=== PATIENT | female | born 1980 | race Caucasian/White ===

== ENCOUNTER 2016-09-24 10:48 | Emergency (ER) | payer MEDICARE, MEDICAID ==
[~2016-09-24 10:48] MED LIST: /BACL20TA OR; /CELE20CA PO; /DIVA50TA PO; /LOR25TA PO; /PREG100CA PO; CIPR500T3 PO; CYCL10TA3 PO; DEPAKOTE PO; DIVA250T PO; DOCU10ELUD PO; FENT100D25 TD; FLEX10TA2 PO; FLEXERIL PO; GABA300C2 PO; GABA600T3 OR; HYDR7.5T38 PO; IBUP800T OR; MACR50CA OR; MELO15TA3 PO; NUCY75TA PO; OLAN10TA2 PO; OXYC30TA4 PO; OXYCONTIN PO; PERC5TAB8 OR; PERC5TAB8 PO; SOMA350T OR; SOMA350T PO; TRAZ150T PO; TRAZ50TA2 PO; ULTR200T2 PO; VALI10TA OR; VICO5TAB PO; ZOLO100T OR; ZOLP-189 PO; ZYPR5TAB2 PO; methylprednisolone PO
--- NOTE | 2016-09-24 12:00 | EDDOCDS ---
Physician Documentation [facility] Name: Ashley Mcmullen Age: 36 yrs Sex: Female : 1980 Arrival Date: 09/24/2016 Time: 10:48 Bed Triage 1 Private MD: Thomas Conklin H. Disposition: 09/24/16 11:53 Discharged to Home/Self Care. Impression: Low back pain. - Condition is Stable. - Discharge Instructions: Chronic Back Pain. - Prescriptions for Medrol (Chencho) 4 mg Oral Tablets, Dose Pack - take 1 Pack by ORAL route as directed - follow package instructions; 1 packet. Robaxin- 750 750 mg Oral Tablet - take 1 tablet by ORAL route every 6 hours As needed; 40 tablet. - Medication Reconciliation, Local Pharmacy Hours form. - Follow up: Thomas Conklin; When: Call to arrange an appointment; Reason: Further diagnostic work-up, Recheck today's complaints, Continuance of care. - Problem is chronic. - Symptoms are unchanged. Historical: - Allergies: no known allergies; - Home Meds: 1. BuSpar Oral 10 mg twice a day as needed 2. doxipen 25 mg for sleep as needed as needed 3. ibuprofen 800 mg Oral tab 1 tab as needed (Last dose: 09/24/2016 05:00) 4. Soma 350 mg Oral tab 1 tab 3 times per day (Last dose: 09/24/2016 05:00) - PMHx: Anxiety Disorder; Chronic Back pain; Depression; - PSHx: Lumbar Fusion; Uterine Ablation; ; back surgeries; - Social history: Smoking status: Patient uses tobacco products, current every day smoker. No barriers to communication noted, The patient speaks fluent Emirati, Speaks appropriately for age. - Family history: Not pertinent. - : The pt / caregiver states he / she is not on anticoagulants. Home medication list is obtained from the patient. - Exposure Risk Screening:: None identified. 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 9 in. (175.26 cm) (R); 10:49 Body Mass Index 22.15 (68.04 kg, 175.26 cm) dd6 MDM: 11:57 Financial registration complete. lg Signatures: Karley Puri, RN RN Mireya Oleary, Diaz Lowry lg RN RN mlb1 Jose Guadalupe Flores PA PA btw MTDD
--- NOTE | 2016-09-24 12:00 | EDDOCDS ---
Nurse's Notes [facility] Name: Ashley Mcmullen Age: 36 yrs Sex: Female : 1980 Arrival Date: 09/24/2016 Time: 10:48 Bed Triage 1 Private MD: Thomas Conklin H. Diagnosis: Low back pain Presentation: 09/24 10:52 Presenting complaint: Patient states: lower back pain that radiates down left leg. hx srm of spinal fusion. pain started 3-4 days ago. Acute neurological deficits are not present. Mechanism of Injury: No Mechanism of Injury. Adult Sepsis Screening: The patient does not have new or worsening altered mentation. Patient's respiratory rate is less than 22. Systolic blood pressure is greater than 100. Patient has a qSOFA score of 0- Negative Sepsis Screen. Suicide/Homicide risk assessment- the patient denies having any suicidal and/or homicidal ideations and does not present with any other emotional, behavioral or mental health complaints. 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 Transition of care: patient was not received from another setting of care. 10:52 Acuity: FAUZIA Level 4 srm 10:52 Method Of Arrival: Walkin/Carried/Asstd srm Triage Assessment: 10:54 General: Appears in no apparent distress, Behavior is appropriate for age, cooperative. srm Pain: Pain currently is 9 out of 10 on a pain scale. HIV screening NA for this visit Offered previously. Musculoskeletal: Reports low back pain. 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 BuSpar Oral 10 mg twice a day as needed 2. doxipen 25 mg for sleep as needed as needed 3. ibuprofen 800 mg Oral tab 1 tab as needed (Last dose: 09/24/2016 05:00) 4. Soma 350 mg Oral tab 1 tab 3 times per day (Last dose: 09/24/2016 05:00) - PMHx: Anxiety Disorder; Chronic Back pain; Depression; - PSHx: Lumbar Fusion; Uterine Ablation; ; back surgeries; - Social history: Smoking status: Patient uses tobacco products, current every day smoker. No barriers to communication noted, The patient speaks fluent Swedish, Speaks appropriately for age. - Family history: Not pertinent. - : The pt / caregiver states he / she is not on anticoagulants. Home medication list is obtained from the patient. - Exposure Risk Screening:: None identified. Screenin:58 Screening information is obtained from the patient. Fall risk: No risks identified. mlb1 Assistance ADL's: requires no assistance with activities of daily living. Abuse/DV Screen: The patient / caregiver reports he/she is: not in a situation that causes fear, pain or injury. Nutritional screening: No deficits noted. Advance Directives: Currently, there is no health care proxy. home support is adequate. Assessment: 11:57 General: Appears uncomfortable, Behavior is appropriate for age, cooperative. Pain: mlb1 Location: low back area Pain currently is 8 out of 10 on a pain scale. Neurological: No deficits noted. Musculoskeletal: Range of motion intact in all extremities. Vital Signs: 10:49 BP 112 / 74; Pulse 103; Resp 18 S; Temp 99.1(O); Pulse Ox 99% on R/A; Weight 68.04 kg dd6 (R); Height 5 ft. 9 in. (175.26 cm) (R); 10:49 Body Mass Index 22.15 (68.04 kg, 175.26 cm) dd6 Vitals: 10:49 Log In Time: September 24, 2016 at 10:47. dd6 ED Course: 10:48 Patient visited by Cj Hill PCA. dd6 10:49 Thomas Conklin is Private Physician. dd6 10:49 Patient moved to Waiting dd6 10:50 Patient moved to Pre RCE dd6 10:53 Triage Initiated srm 10:56 Patient moved to Triage 1 srm 11:25 Jose Guadalupe lFores PA is PHCP. btw 11:25 Josie Salas MD is Attending Physician. btw 11:25 Patient visited by Jose Guadalupe Flores PA. btw 11:53 Thomas Conklin is Referral Physician. btw 11:58 No IV's were initiated during this patient's visit. No procedures done that require mlb1 assistance. 11:59 The patient / caregiver is instructed regarding the plan of care and ED course. mlb1 Order Results: There are currently no results for this order. Outcome: 11:53 Discharge ordered by Provider. btw 11:58 Discharge Assessment: Patient awake, alert and oriented x 3. No cognitive and/or mlb1 functional deficits noted. Patient verbalized understanding of disposition instructions. patient administered narcotics - no. The following High Risk Discharge criteria are identified: None. Discharged to home ambulatory. Condition: good. Discharge instructions given to patient, Instructed on discharge instructions, follow up and referral plans. medication usage, Demonstrated understanding of instructions, medications, Pt was receptive of discharge instructions/ teaching. Prescriptions given X 2. No special radiology studies were completed. Property removed. 11:59 Patient left the ED. mlb1 Signatures: Karley Puri, RN RN Diaz Bartlett RN RN mlb1 Cj Hill, PADDED PRODUCTS INSPECTOR TRIMMER PADDED PRODUCTS INSPECTOR TRIMMER dd6 Jose Guadalupe Flores, ESTRELLA PA btw MTDD
--- NOTE | 2016-09-26 13:01 | EDDOCDS ---
Physician Documentation [facility] Name: Ashley Mcmullen Age: 36 yrs Sex: Female : 1980 Arrival Date: 09/24/2016 Time: 10:48 Bed Triage 1 Private MD: Thomas Conklin H. Disposition: 09/24/16 11:53 Discharged to Home/Self Care. Impression: Low back pain. - Condition is Stable. - Discharge Instructions: Chronic Back Pain. - Prescriptions for Medrol (Chencho) 4 mg Oral Tablets, Dose Pack - take 1 Pack by ORAL route as directed - follow package instructions; 1 packet. Robaxin- 750 750 mg Oral Tablet - take 1 tablet by ORAL route every 6 hours As needed; 40 tablet. - Medication Reconciliation, Local Pharmacy Hours form. - Follow up: Thomas Conklin; When: Call to arrange an appointment; Reason: Further diagnostic work-up, Recheck today's complaints, Continuance of care. - Problem is chronic. - Symptoms are unchanged. Historical: - Allergies: no known allergies; - Home Meds: 1. BuSpar Oral 10 mg twice a day as needed 2. doxipen 25 mg for sleep as needed as needed 3. ibuprofen 800 mg Oral tab 1 tab as needed (Last dose: 09/24/2016 05:00) 4. Soma 350 mg Oral tab 1 tab 3 times per day (Last dose: 09/24/2016 05:00) - PMHx: Anxiety Disorder; Chronic Back pain; Depression; - PSHx: Lumbar Fusion; Uterine Ablation; ; back surgeries; - Social history: Smoking status: Patient uses tobacco products, current every day smoker. No barriers to communication noted, The patient speaks fluent Barbadian, Speaks appropriately for age. - Family history: Not pertinent. - : The pt / caregiver states he / she is not on anticoagulants. Home medication list is obtained from the patient. - Exposure Risk Screening:: None identified. 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 9 in. (175.26 cm) (R); 10:49 Body Mass Index 22.15 (68.04 kg, 175.26 cm) dd6 MDM: 11:57 Financial registration complete. lg 14:36 T-Sheet-- Draft Copy was scanned into [employer] and attached to record. gb 14:36 Other: DRUG UTILIZATION REPORT was scanned into [employer] and attached to record. gb 09/26 11:07 [facility] Payment Agreement was scanned into [employer] and attached to record. lg Signatures: Karley Puri, RN RN [facility] Magda Vasques, Reg Reg gb Mireya Castaneda, Reg Reg lg Diaz Shipley RN RN mlb1 Jose Guadalupe Flores PA PA btw The chart was reviewed and I authenticate all verbal orders and agree with the evaluation and treatment provided.Attachments: 09/24 14:36 T-Sheet-- Draft Copy gb 09/26 11:07 [facility] Payment Agreement lg Chart Complete MTDD
--- NOTE | 2016-09-26 13:01 | EDDOCDS ---
Physician Documentation [facility] Name: Ashley Mcmullen Age: 36 yrs Sex: Female : 1980 Arrival Date: 09/24/2016 Time: 10:48 Bed Triage 1 Private MD: Thomas Conklin H. Disposition: 09/24/16 11:53 Discharged to Home/Self Care. Impression: Low back pain. - Condition is Stable. - Discharge Instructions: Chronic Back Pain. - Prescriptions for Medrol (Chencho) 4 mg Oral Tablets, Dose Pack - take 1 Pack by ORAL route as directed - follow package instructions; 1 packet. Robaxin- 750 750 mg Oral Tablet - take 1 tablet by ORAL route every 6 hours As needed; 40 tablet. - Medication Reconciliation, Local Pharmacy Hours form. - Follow up: Thomas Conklin; When: Call to arrange an appointment; Reason: Further diagnostic work-up, Recheck today's complaints, Continuance of care. - Problem is chronic. - Symptoms are unchanged. Historical: - Allergies: no known allergies; - Home Meds: 1. BuSpar Oral 10 mg twice a day as needed 2. doxipen 25 mg for sleep as needed as needed 3. ibuprofen 800 mg Oral tab 1 tab as needed (Last dose: 09/24/2016 05:00) 4. Soma 350 mg Oral tab 1 tab 3 times per day (Last dose: 09/24/2016 05:00) - PMHx: Anxiety Disorder; Chronic Back pain; Depression; - PSHx: Lumbar Fusion; Uterine Ablation; ; back surgeries; - Social history: Smoking status: Patient uses tobacco products, current every day smoker. No barriers to communication noted, The patient speaks fluent Cymro, Speaks appropriately for age. - Family history: Not pertinent. - : The pt / caregiver states he / she is not on anticoagulants. Home medication list is obtained from the patient. - Exposure Risk Screening:: None identified. 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 9 in. (175.26 cm) (R); 10:49 Body Mass Index 22.15 (68.04 kg, 175.26 cm) dd6 MDM: 11:57 Financial registration complete. lg 14:36 T-Sheet-- Draft Copy was scanned into [employer] and attached to record. gb 14:36 Other: DRUG UTILIZATION REPORT was scanned into [employer] and attached to record. gb 09/26 11:07 [facility] Payment Agreement was scanned into [employer] and attached to record. lg Signatures: Karley Puri, RN RN [facility] Magda Vasques, Reg Reg gb Mireya Castaneda, Reg Reg lg Diaz Shipley RN RN mlb1 Jose Guadalupe Flores PA PA btw The chart was reviewed and I authenticate all verbal orders and agree with the evaluation and treatment provided.Attachments: 09/24 14:36 T-Sheet-- Draft Copy gb 09/26 11:07 [facility] Payment Agreement lg Chart Complete MTDD
--- NOTE | 2016-09-26 13:01 | EDDOCDS ---
Nurse's Notes [facility] Name: Ashley Mcmullen Age: 36 yrs Sex: Female : 1980 Arrival Date: 09/24/2016 Time: 10:48 Bed Triage 1 Private MD: Thomas Conklin H. Diagnosis: Low back pain Presentation: 09/24 10:52 Presenting complaint: Patient states: lower back pain that radiates down left leg. hx srm of spinal fusion. pain started 3-4 days ago. Acute neurological deficits are not present. Mechanism of Injury: No Mechanism of Injury. Adult Sepsis Screening: The patient does not have new or worsening altered mentation. Patient's respiratory rate is less than 22. Systolic blood pressure is greater than 100. Patient has a qSOFA score of 0- Negative Sepsis Screen. Suicide/Homicide risk assessment- the patient denies having any suicidal and/or homicidal ideations and does not present with any other emotional, behavioral or mental health complaints. Status: Patient is not a administrative services coordinator or dependent. Transition of care: patient was not received from another setting of care. 10:52 Acuity: FAUZIA Level 4 srm 10:52 Method Of Arrival: Walkin/Carried/Asstd srm Triage Assessment: 10:54 General: Appears in no apparent distress, Behavior is appropriate for age, cooperative. srm Pain: Pain currently is 9 out of 10 on a pain scale. HIV screening NA for this visit Offered previously. Musculoskeletal: Reports low back pain. 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 BuSpar Oral 10 mg twice a day as needed 2. doxipen 25 mg for sleep as needed as needed 3. ibuprofen 800 mg Oral tab 1 tab as needed (Last dose: 09/24/2016 05:00) 4. Soma 350 mg Oral tab 1 tab 3 times per day (Last dose: 09/24/2016 05:00) - PMHx: Anxiety Disorder; Chronic Back pain; Depression; - PSHx: Lumbar Fusion; Uterine Ablation; ; back surgeries; - Social history: Smoking status: Patient uses tobacco products, current every day smoker. No barriers to communication noted, The patient speaks fluent Telugu, Speaks appropriately for age. - Family history: Not pertinent. - : The pt / caregiver states he / she is not on anticoagulants. Home medication list is obtained from the patient. - Exposure Risk Screening:: None identified. Screenin:58 Screening information is obtained from the patient. Fall risk: No risks identified. mlb1 Assistance ADL's: requires no assistance with activities of daily living. Abuse/DV Screen: The patient / caregiver reports he/she is: not in a situation that causes fear, pain or injury. Nutritional screening: No deficits noted. Advance Directives: Currently, there is no health care proxy. home support is adequate. Assessment: 11:57 General: Appears uncomfortable, Behavior is appropriate for age, cooperative. Pain: mlb1 Location: low back area Pain currently is 8 out of 10 on a pain scale. Neurological: No deficits noted. Musculoskeletal: Range of motion intact in all extremities. Vital Signs: 10:49 BP 112 / 74; Pulse 103; Resp 18 S; Temp 99.1(O); Pulse Ox 99% on R/A; Weight 68.04 kg dd6 (R); Height 5 ft. 9 in. (175.26 cm) (R); 10:49 Body Mass Index 22.15 (68.04 kg, 175.26 cm) dd6 Vitals: 10:49 Log In Time: September 24, 2016 at 10:47. dd6 ED Course: 10:48 Patient visited by Cj Hill PCA. dd6 10:49 Thomas Conklin is Private Physician. dd6 10:49 Patient moved to Waiting dd6 10:50 Patient moved to Pre RCE dd6 10:53 Triage Initiated srm 10:56 Patient moved to Triage 1 srm 11:25 Jose Guadalupe Flores PA is PHCP. btw 11:25 Josie Salas MD is Attending Physician. btw 11:25 Patient visited by Jose Guadalupe Flores PA. btw 11:53 Thomas Conklin is Referral Physician. btw 11:58 No IV's were initiated during this patient's visit. No procedures done that require mlb1 assistance. 11:59 The patient / caregiver is instructed regarding the plan of care and ED course. mlb1 14:36 T-Sheet-- Draft Copy was scanned into [employer] and attached to record. gb 14:36 Other: DRUG UTILIZATION REPORT was scanned into [employer] and attached to record. gb 09/26 11:07 [facility] Payment Agreement was scanned into [employer] and attached to record. lg Order Results: There are currently no results for this order. Outcome: 09/24 11:53 Discharge ordered by Provider. btw 11:58 Discharge Assessment: Patient awake, alert and oriented x 3. No cognitive and/or mlb1 functional deficits noted. Patient verbalized understanding of disposition instructions. patient administered narcotics - no. The following High Risk Discharge criteria are identified: None. Discharged to home ambulatory. Condition: good. Discharge instructions given to patient, Instructed on discharge instructions, follow up and referral plans. medication usage, Demonstrated understanding of instructions, medications, Pt was receptive of discharge instructions/ teaching. Prescriptions given X 2. No special radiology studies were completed. Property removed. 11:59 Patient left the ED. mlb1 Signatures: Karley Puri, RN RN [facility] Magda Vasques, Reg Reg gb Mireya Castaneda, Reg Reg lg Diaz Shipley RN RN mlb1 Cj Hill, GENDER STUDIES PROFESSOR GENDER STUDIES PROFESSOR dd6 Jose Guadalupe Flores PA PA btw Chart Complete MTDD
== END 2016-09-24 11:59 | disposition home or self-care (01) ==
LOC: M ED 10:48
DX: M54.5 Low back pain (principal); G89.29 Other chronic pain; F41.9 Anxiety disorder, unspecified; F32.9 Major depressive disorder, single episode, unspecified; Z79.899 Other long term (current) drug therapy

== ENCOUNTER 2017-03-19 11:33 | Emergency (ER) | payer MEDICARE, MEDICAID ==
[~2017-03-19] VITALS: Ht 172.7 cm; Wt 68.9 kg
[2017-03-19] MEDS ORDERED: IBUP-1022 PO ×2 (11:47→14:44)
[2017-03-19] MEDS ORDERED: NORCO, ANEXSIA 5/325MG TABLET (HYDROcodone/ACETAMINOPHEN) PO ONE (13:45)
--- NOTE | 2017-03-19 14:24 | REP ---
Clinical: Trauma. Injury. Technique: AP and frog lateral views of the left femur. Findings: No acute fracture dislocation. Joint spaces are intact and normal for age. Surrounding soft tissues are unremarkable. Impression: Normal left femur radiographs. Signed by Warner Diop MD 03/19/2017 02:15 P
--- NOTE | 2017-03-19 14:25 | REP ---
Clinical: Trauma. Injury. Technique: AP and lateral views of the left tibia / fibula. Comparison: 03/30/2016. Findings: No acute fracture dislocation. Skeletal structures, joint spaces, and surrounding soft tissues are relatively normal and stable. Old fracture fragments at the lateral malleolus are similar to prior examination. No subcutaneous emphysema or radiodense foreign body. Impression: No acute fracture or dislocation. Signed by Warner Diop MD 03/19/2017 02:16 P
[2017-03-19] MEDS ORDERED: MORPHINE 2 MG/ML 1ML SYRINGE IM ONE (14:30)
[2017-03-19] MEDS ORDERED: NORCOTAB PO (14:44)
[2017-03-19 15:00] VITALS: BP 129/69
[2017-07-20] MEDS ORDERED: PERC5TAB12 PO (16:24)
[2017-07-20] MEDS ORDERED: IBUP80TA PO (16:52)
[2017-07-20] MEDS ORDERED: CYCL10TA PO (16:53)
== END 2017-03-19 15:05 | disposition home or self-care (01) ==
LOC: M ED 11:33
DX: S83.92XA Sprain of unspecified site of left knee, initial encounter (principal); W18.42XA Slipping, tripping and stumbling without falling due to stepping into hole or opening, initial encounter; Y92.009 Unspecified place in unspecified non-institutional (private) residence as the place of occurrence of the external cause; Y93.01 Activity, walking, marching and hiking; Y99.8 Other external cause status; F41.9 Anxiety disorder, unspecified; F17.200 Nicotine dependence, unspecified, uncomplicated

== ENCOUNTER 2017-05-08 11:25 | Emergency (ER) | payer MEDICARE, MEDICAID ==
[~2017-05-08] VITALS: Ht 172.7 cm; Wt 70.4 kg
[~2017-05-08 11:25] MED LIST changes: +IBUP-1022 PO; +NORCOTAB PO
[2017-05-08] MEDS ORDERED: NORCO, ANEXSIA 5/325MG TABLET (HYDROcodone/ACETAMINOPHEN) PO ONE (12:30)
[2017-05-08 12:52] LABS: BASO % 0.5 % (0.0-1.0); EOS # 0.5 K/mm3 (0.0-0.50); EOS % 6.6 % (0.0-3.0); LARGE UNSTAINED CELL # 0.1 K/mm3 (0.0-0.4); LARGE UNSTAINED CELL % 1.3 % (0.0-4.0); LYMPH # 2.4 K/mm3 (1.5-4.5); LYMPH % 31.6 % (24.0-44.0); MEAN CORPUSCULAR HEMOGLOBIN 33.1 pg (27.0-33.0); MEAN CORPUSCULAR HGB CONC 34.6 g/dl (32.0-36.5); MEAN CORPUSCULAR VOLUME 95.6 fl (80.0-96.0); MONO # 0.3 K/mm3 (0.0-0.8); MONO % 3.6 % (0.0-5.0); NEUTROPHILS # 4.2 K/mm3 (1.8-7.7); NEUTROPHILS % 56.3 % (36.0-66.0); PLATELET COUNT, AUTOMATED 299 k/mm3 (150-450); RED CELL DISTRIBUTION WIDTH 12.2 % (11.5-14.5); WHITE BLOOD COUNT 7.4 K/mm3 (4.0-10.0)
[2017-05-08 12:55] LABS: ANION GAP 9 MEQ/L (8-16); BLOOD UREA NITROGEN 9 MG/DL (7-18); CALCIUM LEVEL 9.1 MG/DL (8.5-10.1); CARBON DIOXIDE LEVEL 21 MEQ/L (21-32); CHLORIDE LEVEL 110 MEQ/L (98-107); CREATININE FOR GFR 0.54 MG/DL (0.55-1.02); GLOMERULAR FILTRATION RATE > 60.0 (>60); GLUCOSE, FASTING 109 MG/DL (70-105); POTASSIUM SERUM 4.1 MEQ/L (3.5-5.1); SODIUM LEVEL 140 MEQ/L (136-145)
--- NOTE | 2017-05-08 13:19 | REP ---
CHEST: Two views. There is no evidence of acute infiltrate. No pleural effusion is seen. The heart is normal in size. The mediastinal silhouette is unremarkable. The visualized osseous structures are intact. IMPRESSION: No acute pulmonary disease. Signed by Brian Martines MD 05/08/2017 04:44 P
[2017-05-08 13:28] LABS: ERYTHROCYTE SEDIMENTATION RATE 7 mm/hr (0-20)
[2017-05-08] MEDS ORDERED: NORCOTAB PO (13:56)
[2017-05-08 14:02] VITALS: BP 136/79
--- NOTE | 2017-05-09 08:08 | ECGEPIP ---
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
[2017-07-20] MEDS ORDERED: PERC5TAB12 PO (16:24)
[2017-07-20] MEDS ORDERED: IBUP80TA PO (16:52)
[2017-07-20] MEDS ORDERED: CYCL10TA PO (16:53)
== END 2017-05-08 14:04 | disposition home or self-care (01) ==
LOC: M ED 11:25
DX: N64.4 Mastodynia (principal); F17.200 Nicotine dependence, unspecified, uncomplicated; Z98.1 Arthrodesis status

== ENCOUNTER 2017-09-10 09:05 | Emergency (ER) | payer MEDICARE, MEDICAID ==
[~2017-09-10] VITALS: Ht 175.3 cm; Wt 70.5 kg
[~2017-09-10 09:05] MED LIST changes: +CYCL10TA PO; +IBUP80TA PO; +PERC5TAB12 PO
[2017-09-10] MEDS ORDERED: TYLE325T5 PO (09:18)
[2017-09-10] MEDS ORDERED: MORPHINE 4 MG/ML 1ML SYRINGE IV ONE (09:45)
[2017-09-10] MEDS ORDERED: ONDANSETRON 4MG/2ML VIAL (J2405) IV ONE (09:45)
[2017-09-10] MEDS ORDERED: NS 1,000 ML IV ONE (09:45)
[2017-09-10 10:13] LABS: BASO % 0.5 % (0.0-1.0); EOS # 0.5 10^3/uL (0.0-0.50); EOS % 6.8 % (0.0-3.0); IMMATURE GRANULOCYTE % 0.1 % (0-0); LYMPH # 2.3 10^3/uL (1.5-4.5); MEAN CORPUSCULAR HEMOGLOBIN 31.6 pg (27.0-33.0); MEAN CORPUSCULAR HGB CONC 34.2 g/dl (32.0-36.5); MEAN CORPUSCULAR VOLUME 92.5 fl (80.0-96.0); MONO # 0.4 10^3/uL (0.0-0.8); MONO % 5.9 % (0.0-5.0); NEUTROPHILS # 4.2 10^3/uL (1.8-7.7); NEUTROPHILS % 55.7 % (36.0-66.0); PLATELET COUNT, AUTOMATED 291 10^3/uL (150-450); RED CELL DISTRIBUTION WIDTH 11.9 % (11.5-14.5); WHITE BLOOD COUNT 7.5 10^3/uL (4.0-10.0)
[2017-09-10 10:46] LABS: ALBUMIN 4.7 GM/DL (3.2-5.2); ALBUMIN/GLOBULIN RATIO 1.34 (1.00-1.93); ALKALINE PHOSPHATASE 57 U/L (45-117); ALT/SGPT 27 U/L (12-78); AMYLASE 31 U/L (25-115); ANION GAP 9 MEQ/L (8-16); AST/SGOT 21 U/L (7-37); BILIRUBIN,DIRECT 0.3 MG/DL (0.0-0.2); BILIRUBIN,TOTAL 1.3 MG/DL (0.2-1.0); BLOOD UREA NITROGEN 5 MG/DL (7-18); CARBON DIOXIDE LEVEL 26 MEQ/L (21-32); CHLORIDE LEVEL 103 MEQ/L (98-107); CREATININE FOR GFR 0.71 MG/DL (0.55-1.02); GLOMERULAR FILTRATION RATE > 60.0 (>60); GLUCOSE, FASTING 90 MG/DL (70-105); POTASSIUM SERUM 4.1 MEQ/L (3.5-5.1); SODIUM LEVEL 138 MEQ/L (136-145); TOTAL PROTEIN 8.2 GM/DL (6.4-8.2)
[2017-09-10] MEDS ORDERED: ISOVUE-370 76% 100ML VIAL (Q9967) As Ordered ONE (10:46)
[2017-09-10] MEDS ORDERED: AUGM875T28 PO (11:38)
[2017-09-10] MEDS ORDERED: ZOFR4TAB3 PO (11:38)
[2017-09-10] MEDS ORDERED: AUGMENTIN 875 MG TAB PO ONE (11:45)
[2017-09-10 11:47] VITALS: BP 127/88
--- NOTE | 2017-09-10 11:48 | REP ---
CT ABDOMEN AND PELVIS WITH IV CONTRAST: TECHNIQUE: Axial contrast enhanced images from the lung bases to the pubic symphysis using 100 mL Isovue 370 intravenous contrast material with multiplanar reformations. The visualized lung bases demonstrate no infiltrate. The liver, spleen, adrenals, pancreas and kidneys are unremarkable in appearance. There is no hydronephrosis bilaterally. There is no abdominal aortic aneurysm. There is no adenopathy. There is no free air or free fluid. I see no bowel wall thickening. There are small bowel loops in the upper abdomen which are moderately dilated which may represent an ileus. I do not see compelling evidence for bowel obstruction. No pelvic mass is seen. Urinary bladder is grossly unremarkable. No anterior abdominal wall defect is seen. The appendix is normal. There are metallic screws in the lower lumbar spine with rods posteriorly compatible with prior surgical fusion at L5-S1. IMPRESSION: Moderately dilated jejunum in the left upper quadrant may represent ileus with no compelling evidence for obstruction. No free air. No evidence of appendicitis. Signed by Brian Martines MD 09/10/2017 08:38 P
== END 2017-09-10 11:50 | disposition home or self-care (01) ==
LOC: M ED 09:05
DX: E86.0 Dehydration (principal); K56.7 Ileus, unspecified; J02.0 Streptococcal pharyngitis; F17.210 Nicotine dependence, cigarettes, uncomplicated
CPT/HCPCS: 74177; 80048; 80076; 81001; 81025; 82150; 83690; 85025; 87880; 96374; 96375; 99284; J2405; Q9967

== ENCOUNTER → 2017-10-10 | Outpatient (CLI) | payer MEDICARE, MEDICAID | LOC: M LRY 15:20 | DX: S39.92XA Unspecified injury of lower back, initial encounter (principal); M51.36 Other intervertebral disc degeneration, lumbar region; W10.8XXA Fall (on) (from) other stairs and steps, initial encounter; Y92.008 Other place in unspecified non-institutional (private) residence as the place of occurrence of the external cause; Z98.1 Arthrodesis status | CPT/HCPCS: 72110; G0463 ==

== ENCOUNTER → 2018-05-27 | Outpatient (CLI) | payer MEDICARE, MEDICAID ==
[2018-05-27 09:45] LABS: BASO % 0.2 % (0.0-1.0); EOS # 0.3 10^3/uL (0.0-0.50); HEMATOCRIT 46.4 % (36.0-47.0); HEMOGLOBIN 15.7 g/dl (12.0-15.5); IMMATURE GRANULOCYTE % 0.4 % (0-3.0); LYMPH # 2.3 10^3/uL (1.5-4.5); LYMPH % 18.2 % (24.0-44.0); MEAN CORPUSCULAR HEMOGLOBIN 32.6 pg (27.0-33.0); MEAN CORPUSCULAR HGB CONC 33.8 g/dl (32.0-36.5); MEAN CORPUSCULAR VOLUME 96.3 fl (80.0-96.0); MONO # 0.7 10^3/uL (0.0-0.8); MONO % 5.3 % (0.0-5.0); NEUTROPHILS # 9.1 10^3/uL (1.8-7.7); NEUTROPHILS % 73.9 % (36.0-66.0); PLATELET COUNT, AUTOMATED 350 10^3/uL (150-450); RED BLOOD COUNT 4.82 10^6/uL (4.00-5.40); RED CELL DISTRIBUTION WIDTH 12.4 % (11.5-14.5); WHITE BLOOD COUNT 12.4 10^3/uL (4.0-10.0)
[2018-05-27 10:16] LABS: ALBUMIN 4.1 GM/DL (3.2-5.2); ALBUMIN/GLOBULIN RATIO 1.11 (1.00-1.93); ALKALINE PHOSPHATASE 61 U/L (45-117); ALT/SGPT 24 U/L (12-78); ANION GAP 9 MEQ/L (8-16); AST/SGOT 14 U/L (7-37); BILIRUBIN,TOTAL 1.2 MG/DL (0.2-1.0); BLOOD UREA NITROGEN 8 MG/DL (7-18); CALCIUM LEVEL 9.7 MG/DL (8.5-10.1); CARBON DIOXIDE LEVEL 26 MEQ/L (21-32); CHLORIDE LEVEL 104 MEQ/L (98-107); CREATININE FOR GFR 0.83 MG/DL (0.55-1.30); GLOMERULAR FILTRATION RATE > 60.0 (>60); GLUCOSE, FASTING 78 MG/DL (70-100); LIPASE 304 U/L (73-393); POTASSIUM SERUM 4.7 MEQ/L (3.5-5.1); SODIUM LEVEL 139 MEQ/L (136-145); TOTAL PROTEIN 7.8 GM/DL (6.4-8.2)
== END ==
LOC: M WUC 08:36
DX: R19.7 Diarrhea, unspecified (principal); R10.84 Generalized abdominal pain
CPT/HCPCS: 83690

== ENCOUNTER → 2018-08-02 | Outpatient (CLI) | payer MEDICARE, MEDICAID ==
[2018-08-02 13:13] LABS: ALBUMIN 3.7 GM/DL (3.2-5.2); ALBUMIN/GLOBULIN RATIO 1.16 (1.00-1.93); ALKALINE PHOSPHATASE 57 U/L (45-117); ALT/SGPT 29 U/L (12-78); AST/SGOT 16 U/L (7-37); BILIRUBIN,DIRECT 0.1 MG/DL (0.0-0.2); BILIRUBIN,TOTAL 0.6 MG/DL (0.2-1.0); TOTAL PROTEIN 6.9 GM/DL (6.4-8.2)
== END ==
LOC: M WUC 09:52
DX: F11.20 Opioid dependence, uncomplicated (principal)
CPT/HCPCS: 80076

== ENCOUNTER 2018-11-09 18:27 | Emergency (ER) | payer MEDICAID, MEDICARE ==
[~2018-11-09] VITALS: Ht 172.7 cm; Wt 68.2 kg
[~2018-11-09 18:27] MED LIST changes: +AUGM875T28 PO; +CYCL5TAB PO; +DOXE25CA; +MOTR200T44 PO; +TYLE325T5 PO; +ZOFR4TAB14 PO
--- NOTE | 2018-11-09 19:13 | REP ---
Nasal bone series three views: No nasal bone fracture is identified. The visualized paranasal sinuses and orbital rims are unremarkable. Impression: No nasal bone fracture. Electronically Signed by Brian Carr MD 11/09/2018 07:04 P
[2018-11-09 21:07] VITALS: BP 146/93
[2018-11-09] MEDS ORDERED: KETO10TAB PO (21:29)
[2018-11-09] MEDS ORDERED: KETOROLAC TROMETHAMINE 10 MG TAB PO ONE (21:30)
== END 2018-11-09 21:36 | disposition home or self-care (01) ==
LOC: M ED 18:27
DX: S00.33XA Contusion of nose, initial encounter (principal); W01.190A Fall on same level from slipping, tripping and stumbling with subsequent striking against furniture, initial encounter; Y92.89 Other specified places as the place of occurrence of the external cause; F41.9 Anxiety disorder, unspecified; Z79.899 Other long term (current) drug therapy

== ENCOUNTER → 2018-11-18 | Outpatient (CLI) | payer MEDICARE ==
[~2018-11-18] MED LIST changes: +KETO10TAB PO
[2018-11-18 13:23] LABS: ALBUMIN 3.8 GM/DL (3.2-5.2); ALT/SGPT 24 U/L (12-78); BILIRUBIN,DIRECT < 0.1 MG/DL (0.0-0.2); BILIRUBIN,TOTAL 0.3 MG/DL (0.2-1.0); TOTAL PROTEIN 6.5 GM/DL (6.4-8.2)
== END ==
LOC: M WUC 09:25
PROVIDERS: ATTEND Nurse Practitioner Family
DX: F10.26 Alcohol dependence with alcohol-induced persisting amnestic disorder (principal)

== ENCOUNTER 2019-01-23 20:48 | Emergency (ER) | payer MEDICARE, MEDICAID ==
[~2019-01-23] VITALS: Ht 175.3 cm; Wt 70.5 kg
[~2019-01-23 20:48] MED LIST changes: -/BACL20TA OR; -/CELE20CA PO; -/DIVA50TA PO; -/PREG100CA PO; +BACL1TAB9 OR; +CELE1CAP4 PO; +DEPA1TAB3 PO; -DOCU10ELUD PO; +DOCU5LIQ PO; +HYDR-3715 PO; +LYRI100C PO; -NORCOTAB PO
[2019-01-23] MEDS ORDERED: NS 1,000 ML IV ONE (22:00)
[2019-01-23 22:14] LABS: HEMOGLOBIN 13.7 g/dl (12.0-15.5); MEAN CORPUSCULAR HEMOGLOBIN 31.7 pg (27.0-33.0); MEAN CORPUSCULAR HGB CONC 33.4 g/dl (32.0-36.5); MEAN CORPUSCULAR VOLUME 94.9 fl (80.0-96.0); PLATELET COUNT, AUTOMATED 277 10^3/uL (150-450); RED BLOOD COUNT 4.32 10^6/uL (4.00-5.40)
[2019-01-23 22:25] LABS: WHITE BLOOD COUNT 9.5 10^3/uL (4.0-10.0)
[2019-01-23] MEDS ORDERED: ISOVUE-370 76% 100ML VIAL (Q9967) As Ordered ONE (22:27)
[2019-01-23 22:33] LABS: PROTHROMBIN TIME 13.3 SECONDS (12.1-14.4)
[2019-01-23 22:34] LABS: PARTIAL THROMBOPLASTIN TIME 24.7 SECONDS (25.4-37.6)
[2019-01-23 22:38] LABS: ATYPICAL LYMPH 2 % (0-5); BASOPHILS 1 % (0-4); EOSINOPHILS 3 % (0-5); LYMPHOCYTES 59 % (16-52); MONOCYTES 3 % (0-8); NEUTROPHILS 32 % (35-75); PLATELET ESTIMATE NORMAL (NORMAL)
[2019-01-23 22:43] LABS: ALBUMIN 4.2 GM/DL (3.2-5.2); ALT/SGPT 31 U/L (12-78); BILIRUBIN,DIRECT < 0.1 MG/DL (0.0-0.2); BILIRUBIN,TOTAL 0.5 MG/DL (0.2-1.0); CPK CREATINE PHOSPHOKINASE 583 U/L (26-192); MB/CK RELATIVE INDEX 0.51 (< OR =4); TOTAL PROTEIN 7.5 GM/DL (6.4-8.2); TROPONIN I < 0.02 NG/ML (< 0.10)
--- NOTE | 2019-01-23 23:59 | REPVR ---
EXAM: CT Angiography Abdomen and Pelvis With Contrast EXAM DATE/TIME: 01/23/2019 10:26 PM CLINICAL HISTORY: 38 years old, female; Pain; Other: Groin; Additional info: Abd/left groin pain with color changes ble TECHNIQUE: Imaging protocol: Axial computed tomographic angiography images of the abdomen and pelvis with intravenous contrast material. Coronal and sagittal reformatted images were created and reviewed. 3D rendering: MIP and 3D reconstructed images were created and reviewed. Radiation optimization: All CT scans at this facility use at least one of these dose optimization techniques: automated exposure control; mA and/or kV adjustment per patient size (includes targeted exams where dose is matched to clinical indication); or iterative reconstruction. Contrast material: ISOVUE 370; Contrast volume: 100 ml; Contrast route: IV; COMPARISON: CT ABD/PEL W/IV CONTRAST ONLY 09/10/2017 10:49 AM FINDINGS: LUNG BASES: Minimal focal subpleural groundglass opacity within the right lower lobe slightly atypical but likely atelectasis. VASCULAR: Visualized cardiothoracic ratio is within normal limits. The distal thoracic aorta is unremarkable. No abdominal aortic aneurysm, dissection, or retroperitoneal hematoma. The abdominal aorta bifurcation, common iliac bifurcations and common femoral bifurcations are patent without evidence of luminal abnormality. The celiac axis, superior mesenteric artery, bilateral renal arteries and inferior mesenteric artery are patent. No hematoma or fluid collection is seen in either groin. Systemic venous and portal venous contrast bolus is insufficient on this examination for diagnostic evaluation. PERITONEAL : No free air or free fluid. GI: No hiatal hernia. The stomach contains some fluid and gas. The stomach is not sufficiently distended for complete diagnostic evaluation. No perigastric or periduodenal inflammatory stranding is seen. No asymmetric bowel distention to suggest obstruction. There is no focal mesenteric inflammatory stranding. No mesenteric lymphadenopathy by size criteria. Scattered fecal material and gas slightly distended portions of the colon and rectum. No pericolonic inflammatory stranding. No evidence of acute diverticulitis. The appendix does not appear inflamed. HEPATOBILIARY, PANCREAS, SPLEEN: Sagittal hepatic length is 17.1 cm. No calcified gallstones or biliary dilation. No pancreatic inflammation. Spleen not enlarged. ADRENALS, KIDNEYS, BLADDER, RETROPERITONEAL: Adrenals within normal limits. No hydronephrosis. Symmetric renal enhancement. No perinephric stranding or fluid. No perivesical stranding. No bladder wall thickening. PELVIC: No dominant cystic pelvic mass seen. Anteverted uterus. Gas within the vagina may be iatrogenic. Surgical clips are noted along the adnexa bilaterally. MUSCULOSKELETAL: No skin thickening or subcutaneous infiltration is seen within either groin to suggest inflammation or hemorrhage. Small nonspecific bilateral femoral lymph nodes are seen. No bowel containing body wall hernia. Lower lumbar postsurgical changes are noted with lumbosacral fusion. No evidence of complication is seen to this fusion. No acute fracture or suspicious bone lesion. IMPRESSION: No imaging correlate is seen to the given clinical history of "left groin pain with color changes". Nonspecific findings as discussed above. Electronically signed by: Giuseppe Maldonado On 01/23/2019 23:58:28 PM
[2019-01-24] MEDS ORDERED: KETOROLAC 30 MG/ML VIAL (J1885) IV ONE
--- NOTE | 2019-01-24 00:03 | REPVR ---
EXAM: US Duplex Bilateral Lower Extremity Veins EXAM DATE/TIME: 01/23/2019 11:26 PM CLINICAL HISTORY: 38 years old, female; Pain; Foot; Bilateral; Additional info: Swelling/pain/discoloration ble TECHNIQUE: Imaging protocol: Real-time duplex ultrasound of the Bilateral Lower Extremities with 2-D samayoa scale, color Doppler flow and spectral waveform analysis. Complete exam focused on the bilateral lower extremity veins. COMPARISON: No relevant prior studies available. FINDINGS: There is spontaneous, phasic color flow and compressibility of the deep veins, from the common femoral to the popliteal. Augmentation to flow is noted. There is no evidence of DVT in the evaluated bilateral lower extremities. Venous spectral wave forms are phasic, likely secondary to respiratory and cardiac contribution. The visualized proximal greater saphenous veins demonstrate color flow, consistent with patency. No perivenous soft tissue fluid collection seen bilaterally. No fluid collection, hematoma or edema is seen at the level of the left groin. Calf veins are not evaluated on this exam. IMPRESSION: No evidence of DVT in the either lower extremity. Electronically signed by: Giuseppe Maldonado On 01/24/2019 00:03:09 AM
[2019-01-24] MEDS ORDERED: CIPR-249 PO (01:59)
[2019-01-24 02:21] VITALS: BP 135/78
== END 2019-01-24 02:23 | disposition home or self-care (01) ==
LOC: M ED 20:48
DX: M79.661 Pain in right lower leg (principal); M79.662 Pain in left lower leg; N39.0 Urinary tract infection, site not specified; R74.8 Abnormal levels of other serum enzymes; F41.9 Anxiety disorder, unspecified; F17.210 Nicotine dependence, cigarettes, uncomplicated
CPT/HCPCS: 74174; 80047; 80076; 81001; 82550; 82553; 83874; 84484; 85025; 85610; 85730; 86850; 86900; 86901; 87086; 93970; 96361; 96374; 99284; J1885; Q9967

== ENCOUNTER → 2021-02-18 | Outpatient (CLI) | payer MEDICARE, MEDICAID ==
[~2021-02-18] MED LIST changes: +CIPR-249 PO; +CYCL-707 PO; -CYCL10TA PO
[2021-02-18 14:13] LABS: HEMATOCRIT 43.5 % (36.0-47.0); HEMOGLOBIN 14.6 g/dl (12.0-15.5); MEAN CORPUSCULAR HEMOGLOBIN 31.5 pg (27.0-33.0); MEAN CORPUSCULAR HGB CONC 33.6 g/dl (32.0-36.5); MEAN CORPUSCULAR VOLUME 93.8 fl (80.0-96.0); PLATELET COUNT, AUTOMATED 323 10^3/uL (150-450); RED BLOOD COUNT 4.64 10^6/uL (4.00-5.40); WHITE BLOOD COUNT 8.2 10^3/uL (4.0-10.0)
[2021-02-18 14:51] LABS: ALBUMIN 3.6 GM/DL (3.2-5.2); ALT/SGPT 26 U/L (12-78); BILIRUBIN,TOTAL 0.2 MG/DL (0.2-1.0); BLOOD UREA NITROGEN 10 MG/DL (7-18); CALCIUM LEVEL 9.3 MG/DL (8.5-10.1); CARBON DIOXIDE LEVEL 29 MEQ/L (21-32); CHLORIDE LEVEL 103 MEQ/L (98-107); CREATININE FOR GFR 0.76 MG/DL (0.55-1.30); GLOMERULAR FILTRATION RATE > 60.0 (>60); GLUCOSE, FASTING 87 MG/DL (70-100); POTASSIUM SERUM 4.3 MEQ/L (3.5-5.1); SODIUM LEVEL 137 MEQ/L (136-145); THYROID STIMULATING HORMONE 0.753 uIU/ML (0.358-3.740); TOTAL PROTEIN 6.6 GM/DL (6.4-8.2)
== END ==
LOC: M LAB 13:45
DX: F10.20 Alcohol dependence, uncomplicated (principal); E07.9 Disorder of thyroid, unspecified

== ENCOUNTER → 2021-09-30 | Outpatient (REF) | LOC: M LABSMTC 10:36 | PROVIDERS: ATTEND Family Medicine | DX: Z11.52 Encounter for screening for COVID-19 (principal) ==

== ENCOUNTER → 2021-10-02 | Outpatient (REF) | LOC: M LABSMTC 14:04 | PROVIDERS: ATTEND Family Medicine | DX: Z11.52 Encounter for screening for COVID-19 (principal) ==

== ENCOUNTER → 2021-12-03 | Outpatient (CLI) | payer MEDICARE, MEDICAID | LOC: M WHC 06:52 | PROVIDERS: ATTEND Internal Medicine | DX: Z12.31 Encounter for screening mammogram for malignant neoplasm of breast (principal) ==

== ENCOUNTER → 2022-08-01 | Outpatient (CLI) | payer MEDICARE, MEDICAID ==
[2022-08-01 08:54] LABS: BASO # 0.1 10^3/uL (0.0-0.2); BASO % 0.8 % (0.0-1.0); EOS # 0.3 10^3/uL (0.0-0.5); EOS % 4.2 % (0.0-3.0); HEMATOCRIT 42.9 % (36.0-47.0); HEMOGLOBIN 14.4 g/dl (12.0-15.5); LYMPH # 2.9 10^3/uL (1.5-5.0); LYMPH % 38.9 % (24.0-44.0); MEAN CORPUSCULAR HEMOGLOBIN 31.8 pg (27.0-33.0); MEAN CORPUSCULAR HGB CONC 33.6 g/dl (32.0-36.5); MEAN CORPUSCULAR VOLUME 94.7 fl (80.0-96.0); MONO # 0.7 10^3/uL (0.0-0.8); MONO % 9.2 % (2.0-8.0); NEUTROPHILS # 3.4 10^3/uL (1.5-8.5); NEUTROPHILS % 46.6 % (36.0-66.0); PLATELET COUNT, AUTOMATED 372 10^3/uL (150-450); RED BLOOD COUNT 4.53 10^6/uL (4.00-5.40); WHITE BLOOD COUNT 7.4 10^3/uL (4.0-10.0)
[2022-08-01 09:21] LABS: ALBUMIN 4.1 GM/DL (3.2-5.2); ALT/SGPT 23 U/L (12-78); BILIRUBIN,TOTAL 0.6 MG/DL (0.2-1.0); BLOOD UREA NITROGEN 9 MG/DL (7-18); CALCIUM LEVEL 9.6 MG/DL (8.5-10.1); CARBON DIOXIDE LEVEL 27 MEQ/L (21-32); CHLORIDE LEVEL 102 MEQ/L (98-107); CREATININE FOR GFR 0.85 MG/DL (0.55-1.30); GLOMERULAR FILTRATION RATE > 60.0 (>58); GLUCOSE, FASTING 106 MG/DL (70-100); SODIUM LEVEL 135 MEQ/L (136-145); TOTAL PROTEIN 7.4 GM/DL (6.4-8.2)
== END ==
LOC: M LAB 07:42
PROVIDERS: ATTEND Nurse Practitioner Family
DX: F40.01 Agoraphobia with panic disorder (principal)

== ENCOUNTER 2023-04-27 07:20 | Emergency (ER) | payer MEDICARE, MEDICAID ==
[~2023-04-27] VITALS: Ht 175.3 cm; Wt 80.4 kg
[2023-04-27] MEDS ORDERED: CLON0.2T (07:27)
[2023-04-27] MEDS ORDERED: SERT50TA29 PO (07:28)
[2023-04-27 09:48] VITALS: BP 123/70; TEMP 97.2; O2SAT 98
== END 2023-04-27 09:55 | disposition home or self-care (01) ==
LOC: M ED 07:20
DX: S93.402A Sprain of unspecified ligament of left ankle, initial encounter (principal); X58.XXXA Exposure to other specified factors, initial encounter; Y92.89 Other specified places as the place of occurrence of the external cause; Y93.89 Activity, other specified; Y99.8 Other external cause status; Z79.899 Other long term (current) drug therapy

== ENCOUNTER 2023-05-11 06:41 | Emergency (ER) | payer MEDICARE, MEDICAID ==
[~2023-05-11] VITALS: Ht 172.7 cm; Wt 80.0 kg
[~2023-05-11 06:41] MED LIST changes: +CLON0.2T; +SERT50TA29 PO
[2023-05-11] MEDS ORDERED: KETOROLAC 60MG 2ML VIAL IM ONE (08:25)
[2023-05-11] MEDS ORDERED: SALI0.6530 NARES (08:27)
[2023-05-11] MEDS ORDERED: FLON1SPR NARES (08:27)
[2023-05-11 08:36] VITALS: BP 108/59; TEMP 97.8; O2SAT 99
== END 2023-05-11 08:38 | disposition home or self-care (01) ==
LOC: M ED 06:41
DX: S02.2XXA Fracture of nasal bones, initial encounter for closed fracture (principal); S00.81XA Abrasion of other part of head, initial encounter; Y04.0XXA Assault by unarmed brawl or fight, initial encounter; Y92.009 Unspecified place in unspecified non-institutional (private) residence as the place of occurrence of the external cause; Y93.89 Activity, other specified; Y99.8 Other external cause status; Z79.899 Other long term (current) drug therapy; J34.2 Deviated nasal septum
CPT/HCPCS: 70486; 96372; 99283; J1885

== ENCOUNTER 2023-05-19 11:01 | Day surgery (SDC) | payer MEDICARE, MEDICAID ==
[~2023-05-19] VITALS: Ht 172.7 cm; Wt 79.7 kg
[~2023-05-19 11:01] MED LIST changes: -CLON0.2T; +CLON0.2T PO; +FLON1SPR NARES; +SALI0.6530 NARES
[2023-05-19] MEDS ORDERED: BUPR300T92 PO (11:33)
[2023-05-19] MEDS ORDERED: TRAZ-189 PO (11:33)
[2023-05-19] MEDS ORDERED: AMPH1TAB2 PO (11:33)
[2023-05-19] MEDS ORDERED: propofoL 200 MG/20 ML VIAL As Ordered ONE (13:33)
[2023-05-19] MEDS ORDERED: MIDAZOLAM INJ 2MG/2ML VIAL As Ordered ONE (13:33)
[2023-05-19] MEDS ORDERED: ONDANSETRON 4MG 2ML VIAL As Ordered ONE (13:33)
[2023-05-19] MEDS ORDERED: LIDOCAINE 2% 100MG/5ML SDV (FOR ANES.) As Ordered ONE (13:33)
[2023-05-19] MEDS ORDERED: fentaNYL 100 MCG/2 ML INJECTION As Ordered ONE (13:33)
[2023-05-19] MEDS ORDERED: ACETAMINOPHEN 1000MG 100ML IV BAG As Ordered ONE (13:36)
[2023-05-19] MEDS ORDERED: METHYLENE BLUE 0.5% (5MG/ML) 10 ML AMP (PROVAYBLUE) As Ordered ONE (13:37)
[2023-05-19] MEDS ORDERED: EPINEPHrine INJ 1 MG/ML 1ML AMP As Ordered ONE (13:37)
[2023-05-19] MEDS ORDERED: LIDOCAINE W/EPINEPHRINE 1% 20ML VIAL As Ordered ONE (13:37)
[2023-05-19] MEDS ORDERED: EPINEPHrine 1MG/ML INJ 30ML MD-VIAL As Ordered ONE (14:07)
[2023-05-19] MEDS ORDERED: fentaNYL 100 MCG/2 ML INJECTION IV PRN (14:30)
[2023-05-19] MEDS ORDERED: LR 1,000 ML IV SCH (14:30)
[2023-05-19] MEDS ORDERED: ONDANSETRON 4MG 2ML VIAL IV PRN (14:30)
[2023-05-19] MEDS ORDERED: oxyCODONE 5MG TAB PO PRN (14:30)
[2023-05-19 15:56] VITALS: BP 133/77; TEMP 98.3; O2SAT 98
== END 2023-05-19 15:56 | disposition home or self-care (01) ==
LOC: M SDC 11:01
PROVIDERS: ATTEND Otolaryngology
DX: S02.2XXA Fracture of nasal bones, initial encounter for closed fracture (principal); Y04.0XXA Assault by unarmed brawl or fight, initial encounter; Y92.009 Unspecified place in unspecified non-institutional (private) residence as the place of occurrence of the external cause; F17.210 Nicotine dependence, cigarettes, uncomplicated
CPT/HCPCS: 21320; J0131; J0171; J1100; J2250; J2405; J3010; Q9968

== ENCOUNTER → 2023-12-11 | Outpatient (REF) ==
[~2023-12-11] MED LIST changes: +AMPH1TAB2 PO; +BUPR300T92 PO; -SALI0.6530 NARES; +SODI88SP NARES; +TRAZ-189 PO
== END ==
LOC: M EMP 10:13
PROVIDERS: ATTEND Family Medicine
DX: Z01.89 Encounter for other specified special examinations (principal)

== ENCOUNTER → 2023-12-11 | Outpatient (REF) | LOC: M EMP 10:37 | PROVIDERS: ATTEND Family Medicine | DX: Z11.52 Encounter for screening for COVID-19 (principal) ==

== ENCOUNTER → 2024-04-28 | Outpatient (REF) ==
[~2024-04-28] MED LIST changes: +BUPR-597 PO; -BUPR300T92 PO
== END ==
LOC: M EMP 08:03
PROVIDERS: ATTEND Family Medicine
DX: Z11.52 Encounter for screening for COVID-19 (principal)

== ENCOUNTER 2025-08-07 06:00 | Emergency (ER) | payer BC, MEDICARE ==
[~2025-08-07] VITALS: Ht 175.3 cm; Wt 61.4 kg
[~2025-08-07 06:00] MED LIST changes: -BUPR-597 PO; +BUPR-766 PO; -CYCL5TAB PO; +CYCL5TAB4 PO; +GABA-1172 PO; -IBUP-1022 PO; +IBUP600T42 PO; +PRED20TA PO; +VALA1TAB5 PO
[2025-08-07] MEDS ORDERED: DOXA1TAB41 PO (06:04)
[2025-08-07] MEDS: KETOROLAC 60 MG/2 ML VIAL IM ONE (06:57)
[2025-08-07] MEDS: LIDOCAINE 5% PATCH TD ONE (06:57)
[2025-08-07] MEDS ORDERED: MEDR4PAK PO (08:04)
[2025-08-07] MEDS ORDERED: METH-1165 PO (08:04)
[2025-08-07] MEDS ORDERED: ASPE4PAD TOP (08:04)
[2025-08-07 08:17] VITALS: BP 106/65; TEMP 98.3; O2SAT 97
== END 2025-08-07 08:18 | disposition home or self-care (01) ==
LOC: M ED 06:00
DX: M54.50 Low back pain, unspecified (principal); Z79.899 Other long term (current) drug therapy; Z79.52 Long term (current) use of systemic steroids
CPT/HCPCS: 72110; 96372; 99283; J1885; J2919

== ENCOUNTER 2025-08-14 22:04 | Emergency (ER) | payer BC ==
[~2025-08-14 22:04] MED LIST changes: +ASPE4PAD TOP; +DOXA1TAB41 PO; +MEDR4PAK PO; +METH-1165 PO; -SODI88SP NARES; +SODI88SP7 NARES
[2025-08-14 22:09] VITALS: BP 113/55; TEMP 96; O2SAT 97
[2025-08-16] MEDS ORDERED: KETO-204 PO (05:32)
[2025-08-16] MEDS ORDERED: LEVO75TAB PO (05:32)
[2025-08-16] MEDS ORDERED: PERC5TAB12 PO (05:32)
== END 2025-08-15 00:34 | disposition left against medical advice (07) ==
LOC: M ED 22:04
DX: Z53.21 Procedure and treatment not carried out due to patient leaving prior to being seen by health care provider (principal)

== ENCOUNTER 2025-08-16 01:08 | Emergency (ER) | payer BC ==
[~2025-08-16] VITALS: Ht 175.3 cm; Wt 61.4 kg
[2025-08-16] MEDS ORDERED: ISOVUE-370 76% 100 ML VIAL As Ordered ONE (02:03)
[2025-08-16] MEDS: ONDANSETRON 4MG/2ML VIAL IV ONE (02:07)
[2025-08-16] MEDS: MORPHINE 4 MG/ML 1 ML VIAL IV PRN (02:08)
[2025-08-16] MEDS ORDERED: KETO-204 PO (05:32)
[2025-08-16] MEDS ORDERED: LEVO75TAB PO (05:32)
[2025-08-16] MEDS ORDERED: PERC5TAB12 PO (05:32)
[2025-08-16] MEDS: KETOROLAC 30 MG/ML 1 ML VIAL IV ONE (05:43)
[2025-08-16] MEDS: OXYCODONE/APAP 5MG/325MG(HOME DOSE PACK) PO ONE (05:43)
[2025-08-16] MEDS: LevoFLOXacin IV 750 MG in IV 1 EA IV ONE (05:43)
[2025-08-16 06:30] VITALS: BP 103/55; TEMP 97.9
[2025-08-16 06:45] VITALS: O2SAT 94
== END 2025-08-16 07:01 | disposition home or self-care (01) ==
LOC: M ED 01:08
DX: J18.9 Pneumonia, unspecified organism (principal); J90 Pleural effusion, not elsewhere classified; F17.200 Nicotine dependence, unspecified, uncomplicated; Z79.899 Other long term (current) drug therapy
CPT/HCPCS: 71260; 80047; 96374; 96375; 96376; 99284; J1885; J1956; J2405; Q9967